=== PATIENT | male | born 1950 | race Caucasian/White ===

== ENCOUNTER 2019-11-15 10:06 | Outpatient (CLI) | payer MEDICARE ==
--- NOTE | 2019-11-15 14:42 | NM ---
NM Bone Scan STANDARD History: Mass. Secondary malignant neoplasm of bone Comparison: CT scan November 01, 2019. MRI October 31, 2019 Findings: Delayed whole body imaging performed after the intravenous administration 33 mCi technetium 99m MDP. Adequate uptake of radiotracer. The kidneys and urinary bladder are visualized. There is high-grade patient is uptake on the left SI joint is a into the anterior soft tissues. No ot her abnormal focus of radiotracer uptake is appreciated. Mild degenerative changes of the posterior elements thoracic spine. Impression: Findings of large solitary mass of the left SI joint extending into the anterior soft tis sues. Malignant transformation of osteosarcoma from Paget's disease is a possibility.
== END 2019-11-15 10:07 | disposition home or self-care (01) ==
LOC: NM 10:06
PROVIDERS: ATTEND Internal Medicine Hematology & Oncology
DX: C79.51 Secondary malignant neoplasm of bone (principal); M89.8X8 Other specified disorders of bone, other site
CPT/HCPCS: 78306; A9503

== ENCOUNTER → 2020-11-12 | Day surgery (SDC) | payer MEDICARE ==
[~2020-11-12] MED LIST: Acetaminophen 500 MG TAB PO PRN; Sodium Chloride 0.9% 20 ML ONE; diphenhydrAMINE 25 MG CAP PO PRN
[2020-11-12 16:22] VITALS: BP 157/74; TEMP 98.4
== END ==
LOC: ONC/OP 13:14
PROVIDERS: ATTEND Internal Medicine Hematology & Oncology
PROC: 30233N1 Transfusion of Nonautologous Red Blood Cells into Peripheral Vein, Percutaneous Approach (ICD-10-PCS; principal; 2020-11-12)
DX: D64.9 Anemia, unspecified (principal)
CPT/HCPCS: 36430; 86850; 86900; 86901; P9016; Q0163

== ENCOUNTER 2020-12-25 08:39 | Day surgery (SDC) | payer MEDICARE ==
[~2020-12-25 08:39] MED LIST changes: -Sodium Chloride 0.9% 20 ML ONE
[2020-12-25] MEDS ORDERED: Sodium Chloride 0.9% 20 ML ONE (09:43)
[2020-12-25 13:48] VITALS: BP 148/74; TEMP 98.5
== END 2020-12-25 13:51 | disposition home or self-care (01) ==
LOC: ONC/OP 08:39
PROVIDERS: ATTEND Nurse Practitioner Family
PROC: 30233N1 Transfusion of Nonautologous Red Blood Cells into Peripheral Vein, Percutaneous Approach (ICD-10-PCS; principal; 2020-12-25)
DX: D64.9 Anemia, unspecified (principal); D69.6 Thrombocytopenia, unspecified
CPT/HCPCS: 36430; 86850; 86900; 86901; P9016

== ENCOUNTER 2021-01-23 15:16 | Inpatient (IN) | payer MEDICARE ==
[2021-01-23] MEDS ORDERED: HYDROcodone/Acetaminophen 10/325 mg Tablet ONE ×2 (16:42→16:48)
[2021-01-23 17:01] LABS: Hemoglobin 9.4 g/dL (14.0-18.0); Mean Corpuscular HGB CONC 31.8 g/dL (32.0-36.0); Mean Corpuscular Volume 97.5 fL (78.0-98.0); RBC Distribution Width 19.4 % (11.5-14.5); Red Blood Cell (RBC) Count 3.02 mill/uL (4.70-6.10); White Blood Cell (WBC) Count 4.4 thou/uL (4.8-10.8)
[2021-01-23 17:02] LABS: #Lymphocytes 0.8 thou/uL (1.20-3.40); #Monocytes 0.4 thou/uL (0.11-0.59); #Neutrophils 3.2 thou/uL (1.40-6.50); %Basophils 0.4 % (0.0-1.0); %Eosinophils 0.9 % (0.0-10.0); %Monocytes 8.8 % (0.0-10.0); %Neutrophils 71.9 % (42.0-75.0); Mean Platelet Volume 7.9 fL (7.4-10.4); Platelet Count 112 thou/uL (130-400)
[2021-01-23 17:24] LABS: ALT (SGPT) 22 U/L (8-55); AST (SGOT) 37 U/L (5-34); Albumin 3.7 g/dL (3.4-4.8); Alkaline Phosphatase 957 U/L (40-110); Anion Gap 11 mmol/L (10-20); BUN (Urea Nitrogen) 14 mg/dL (8.4-25.7); Bilirubin, Total 0.5 mg/dL (0.2-1.2); Calc. Creatinine Clearance 0 mL/min (70-130); Calcium 8.7 mg/dL (7.8-10.44); Carbon Dioxide 27 mmol/L (23-31); Chloride 95 mmol/L (98-107); Globulin 2.8 g/dL (2.4-3.5); Glucose 138 mg/dL (83-110); Potassium 4.2 mmol/L (3.5-5.1); Protein, Total 6.5 g/dL (5.8-8.1); Sodium 129 mmol/L (136-145)
[2021-01-23 17:56] LABS: Bacteria/HPF None Seen HPF (None Seen); Bilirubin Negative (Negative); Blood, Urine Negative (Negative); Clarity Clear (Clear); Glucose, Urine (Dipstick) 30 mg/dL (Negative); Ketone, Urine Negative (Negative); Leukocyte Negative Leu/uL (Negative); Nitrite Negative (Negative); Protein, Urine (Dipstick) 30 mg/dL (Neg-Trace); RBC/HPF 0-3 HPF (0-3); Specific Gravity, Urine 1.022 (1.002-1.036); Squamous Epithelial None Seen HPF (0-3); Urobilinogen Normal mg/dL (Less than 2); WBC/HPF 0-3 HPF (0-3)
[2021-01-23] MEDS ORDERED: Magnesium Citrate 300 ML BOT ONE (19:55)
[2021-01-23 22:03] LABS: SARS-CoV-2 NAA Rapid Test Not Detected (NotDetected)
[2021-01-23] MEDS ORDERED: Ondansetron PF 4 MG/2 ML Vial IVP PRN (22:06)
[2021-01-23] MEDS ORDERED: Bisacodyl 5 MG TAB PO PRN (22:06)
[2021-01-23] MEDS ORDERED: Melatonin 3 MG TAB PO PRN (22:13)
[2021-01-23] MEDS ORDERED: Mineral Oil ENEMA PR SCH (22:30)
[2021-01-23] MEDS ORDERED: Tamsulosin HCl 0.4 MG CAP PO SCH (22:30)
[2021-01-24 01:55] VITALS: BMI 29.1
[2021-01-24] MEDS ORDERED: Ketorolac Tromethamine 30 MG/ML VIAL IVP SCH (02:45)
[2021-01-24 06:14] LABS: #Eosinphils 0.1 thou/uL (0.0-0.7); #Lymphocytes 0.8 thou/uL (1.20-3.40); #Monocytes 0.4 thou/uL (0.11-0.59); #Neutrophils 2.3 thou/uL (1.40-6.50); %Basophils 0.5 % (0.0-1.0); %Eosinophils 1.7 % (0.0-10.0); %Monocytes 9.8 % (0.0-10.0); Hemoglobin 8.9 g/dL (14.0-18.0); Mean Corpuscular HGB CONC 32.9 g/dL (32.0-36.0); Mean Corpuscular Hemoglobin 31.8 pg (27.0-31.0); Mean Corpuscular Volume 96.7 fL (78.0-98.0); Mean Platelet Volume 7.8 fL (7.4-10.4); Platelet Count 95 thou/uL (130-400); RBC Distribution Width 19.3 % (11.5-14.5); Red Blood Cell (RBC) Count 2.79 mill/uL (4.70-6.10); White Blood Cell (WBC) Count 3.6 thou/uL (4.8-10.8)
[2021-01-24 06:30] LABS: ALT (SGPT) 25 U/L (8-55); AST (SGOT) 37 U/L (5-34); Albumin 3.5 g/dL (3.4-4.8); Alkaline Phosphatase 883 U/L (40-110); Anion Gap 10 mmol/L (10-20); BUN (Urea Nitrogen) 14 mg/dL (8.4-25.7); Bilirubin, Total 0.5 mg/dL (0.2-1.2); Calc. Creatinine Clearance 170 mL/min (70-130); Calcium 8.4 mg/dL (7.8-10.44); Carbon Dioxide 25 mmol/L (23-31); Chloride 98 mmol/L (98-107); Globulin 2.7 g/dL (2.4-3.5); Glucose 118 mg/dL (83-110); Potassium 4.1 mmol/L (3.5-5.1); Protein, Total 6.2 g/dL (5.8-8.1); Sodium 129 mmol/L (136-145)
[2021-01-24] MEDS: Famotidine/PF 20 mg/2ml Vial SLOW IVP SCH ×2 (08:58→22:16)
[2021-01-24] MEDS: Senokot S 8.6-50 MG TAB PO SCH ×2 (08:59→22:19)
[2021-01-24] MEDS ORDERED: Methylnaltrexone 12 MG/0.6 ML VIAL SC SCH (10:15)
[2021-01-24] MEDS ORDERED: Morphine IR Tab 15 MG TAB PO SCH (11:00)
[2021-01-24] MEDS ORDERED: GoLYTELY 4,000 ml Bottle PO SCH (17:00)
[2021-01-24] MEDS ORDERED: Dexamethasone 4 mg/ml Vial SLOW IVP SCH (18:15)
[2021-01-24] MEDS: Gabapentin 100 MG CAP PO PRN (19:24)
[2021-01-24] MEDS ORDERED: Sodium Chloride 0.9% 1,000 ML IV SCH (20:30)
[2021-01-24] MEDS ORDERED: Albuterol Sulfate 2.5 mg/3 ml Neb NEB PRN (21:08)
[2021-01-24] MEDS ORDERED: Albuterol Sulfate 2.5 mg/3 ml Neb NEB STA (21:08)
[2021-01-24] MEDS: Tamsulosin HCl 0.4 MG CAP PO SCH (22:17)
[2021-01-24] MEDS: Morphine IR Tab 15 MG TAB PO SCH (22:18)
[2021-01-24 23:47] LABS: #Lymphocytes 0.4 thou/uL (1.20-3.40); #Monocytes 0.2 thou/uL (0.11-0.59); #Neutrophils 2.7 thou/uL (1.40-6.50); %Eosinophils 0.7 % (0.0-10.0); %Lymphocytes 11.5 % (21.0-51.0); %Monocytes 6.2 % (0.0-10.0); %Neutrophils 81.6 % (42.0-75.0); Mean Corpuscular HGB CONC 32.8 g/dL (32.0-36.0); Mean Corpuscular Volume 97.6 fL (78.0-98.0); Mean Platelet Volume 7.5 fL (7.4-10.4); Platelet Count 109 thou/uL (130-400); RBC Distribution Width 19.6 % (11.5-14.5); Red Blood Cell (RBC) Count 3.11 mill/uL (4.70-6.10); White Blood Cell (WBC) Count 3.3 thou/uL (4.8-10.8)
[2021-01-24] MEDS ORDERED: Piperacillin/Tazobactam 3.375 GM in Sodium Chloride 0.9% 100 ML IVPB SCH (23:59)
[2021-01-25] LABS: Lactic Acid 0.9 mmol/L (0.5-2.2)
[2021-01-25 00:05] LABS: ALT (SGPT) 35 U/L (8-55); AST (SGOT) 48 U/L (5-34); Albumin 3.8 g/dL (3.4-4.8); Alkaline Phosphatase 992 U/L (40-110); Anion Gap 15 mmol/L (10-20); BUN (Urea Nitrogen) 22 mg/dL (8.4-25.7); Bilirubin, Total 0.6 mg/dL (0.2-1.2); Calc. Creatinine Clearance 148 mL/min (70-130); Calcium 8.8 mg/dL (7.8-10.44); Carbon Dioxide 22 mmol/L (23-31); Chloride 94 mmol/L (98-107); Globulin 3.1 g/dL (2.4-3.5); Glucose 167 mg/dL (83-110); Potassium 4.1 mmol/L (3.5-5.1); Protein, Total 6.9 g/dL (5.8-8.1); Sodium 127 mmol/L (136-145)
[2021-01-25 00:12] VITALS: BP 137/85
[2021-01-25] MEDS: Piperacillin/Tazobactam 3.375 GM in Sodium Chloride 0.9% 100 ML IVPB SCH ×3 (04:32→20:20)
[2021-01-25] MEDS ORDERED: Morphine 2 MG/ML VIAL SLOW IVP PRN (10:01)
[2021-01-25] MEDS ORDERED: Iopamidol-370 76% 500 ML 1 ML ONE (10:20)
[2021-01-25] MEDS ORDERED: Digoxin 0.5 MG/2 ML AMP SLOW IVP SCH (10:30)
[2021-01-25] MEDS: Morphine IR Tab 15 MG TAB PO SCH (10:32)
[2021-01-25] MEDS: Senokot S 8.6-50 MG TAB PO SCH ×2 (10:32→20:57)
[2021-01-25] MEDS: Famotidine/PF 20 mg/2ml Vial SLOW IVP SCH ×2 (10:38→19:52)
[2021-01-25] MEDS ORDERED: Morphine 4 MG/ML VIAL SLOW IVP PRN ×2 (10:39→10:41)
[2021-01-25] MEDS: Amiodarone 450 MG in Dextrose 5% in Water 250 ML IVPB SCH ×2 (13:22→20:59)
[2021-01-25 14:12] LABS: Magnesium 2.5 mg/dL (1.6-2.6)
[2021-01-25 15:36] LABS: #Lymphocytes 0.6 thou/uL (1.20-3.40); #Monocytes 0.3 thou/uL (0.11-0.59); #Neutrophils 2.8 thou/uL (1.40-6.50); %Eosinophils 0.4 % (0.0-10.0); %Monocytes 8.9 % (0.0-10.0); %Neutrophils 75.7 % (42.0-75.0); Hemoglobin 9.9 g/dL (14.0-18.0); Mean Corpuscular HGB CONC 32.1 g/dL (32.0-36.0); Mean Corpuscular Hemoglobin 31.2 pg (27.0-31.0); Mean Corpuscular Volume 97.1 fL (78.0-98.0); Mean Platelet Volume 7.8 fL (7.4-10.4); Platelet Count 133 thou/uL (130-400); RBC Distribution Width 19.5 % (11.5-14.5); Red Blood Cell (RBC) Count 3.18 mill/uL (4.70-6.10); White Blood Cell (WBC) Count 3.7 thou/uL (4.8-10.8)
[2021-01-25 15:50] LABS: ALT (SGPT) 48 U/L (8-55); AST (SGOT) 54 U/L (5-34); Albumin 3.7 g/dL (3.4-4.8); Alkaline Phosphatase 916 U/L (40-110); Anion Gap 15 mmol/L (10-20); BUN (Urea Nitrogen) 25 mg/dL (8.4-25.7); Bilirubin, Total 0.7 mg/dL (0.2-1.2); Calc. Creatinine Clearance 153 mL/min (70-130); Calcium 8.8 mg/dL (7.8-10.44); Carbon Dioxide 21 mmol/L (23-31); Chloride 97 mmol/L (98-107); Glucose 144 mg/dL (83-110); Magnesium 2.6 mg/dL (1.6-2.6); Protein, Total 6.7 g/dL (5.8-8.1); Sodium 129 mmol/L (136-145)
[2021-01-25] MEDS ORDERED: Potassium Phosphate 30 MMOL in Sodium Chloride 0.9% 250 ML 250 ML IVPB SCH (16:30)
[2021-01-25] MEDS: Diltiazem 125 MG in Sodium Chloride 0.9% 100 ML IVPB SCH (19:52)
[2021-01-25] MEDS ORDERED: Methylnaltrexone 12 MG/0.6 ML VIAL SC SCH (20:00)
[2021-01-25] MEDS: Tamsulosin HCl 0.4 MG CAP PO SCH (20:57)
[2021-01-26 03:50] LABS: #Lymphocytes 0.6 thou/uL (1.20-3.40); #Monocytes 0.3 thou/uL (0.11-0.59); #Neutrophils 4.1 thou/uL (1.40-6.50); %Basophils 0.2 % (0.0-1.0); %Eosinophils 0.3 % (0.0-10.0); %Lymphocytes 11.8 % (21.0-51.0); %Monocytes 5.5 % (0.0-10.0); %Neutrophils 82.3 % (42.0-75.0); Band 35 % (5-11); Hemoglobin 10.4 g/dL (14.0-18.0); Lymphocytes 16 % (21-51); MDiff Complete? YES; Mean Corpuscular HGB CONC 32.4 g/dL (32.0-36.0); Mean Corpuscular Hemoglobin 31.7 pg (27.0-31.0); Mean Corpuscular Volume 98.1 fL (78.0-98.0); Mean Platelet Volume 7.4 fL (7.4-10.4); Monocytes 5 % (0-10); Neutrophil 44 % (42-75); Platelet Count 116 thou/uL (130-400); Platelet Morphology Comment Appears Decreased; RBC Distribution Width 19.5 % (11.5-14.5); RBC Morphology Normal; Red Blood Cell (RBC) Count 3.27 mill/uL (4.70-6.10); White Blood Cell (WBC) Count 4.9 thou/uL (4.8-10.8)
[2021-01-26 04:05] LABS: ALT (SGPT) 39 U/L (8-55); AST (SGOT) 38 U/L (5-34); Albumin 3.5 g/dL (3.4-4.8); Alkaline Phosphatase 838 U/L (40-110); Anion Gap 15 mmol/L (10-20); BUN (Urea Nitrogen) 24 mg/dL (8.4-25.7); Bilirubin, Total 0.7 mg/dL (0.2-1.2); Calc. Creatinine Clearance 158 mL/min (70-130); Calcium 8.4 mg/dL (7.8-10.44); Carbon Dioxide 21 mmol/L (23-31); Chloride 100 mmol/L (98-107); Globulin 2.9 g/dL (2.4-3.5); Glucose 131 mg/dL (83-110); Magnesium 2.4 mg/dL (1.6-2.6); Phosphorus 1.5 mg/dL (2.3-4.7); Potassium 3.9 mmol/L (3.5-5.1); Protein, Total 6.4 g/dL (5.8-8.1); Sodium 132 mmol/L (136-145)
[2021-01-26] MEDS: Piperacillin/Tazobactam 3.375 GM in Sodium Chloride 0.9% 100 ML IVPB SCH ×3 (04:54→21:10)
[2021-01-26] MEDS: Diltiazem 125 MG in Sodium Chloride 0.9% 100 ML IVPB SCH ×2 (04:58→15:38)
[2021-01-26] MEDS ORDERED: Electrolyte Replacement Protocol 1 EACH FS SCH (05:30)
[2021-01-26] MEDS ORDERED: Potassium Phosphate 22 MMOL in Sodium Chloride 0.9% 250 ML 250 ML IVPB SCH (06:00)
[2021-01-26] MEDS ORDERED: Potassium Phosphate 30 MMOL in Sodium Chloride 0.9% 250 ML 250 ML IVPB SCH (06:45)
[2021-01-26] MEDS: Famotidine/PF 20 mg/2ml Vial SLOW IVP SCH ×2 (08:36→21:12)
[2021-01-26] MEDS: Senokot S 8.6-50 MG TAB PO SCH ×2 (09:09→21:11)
[2021-01-26] MEDS ORDERED: NEOSTIGMINE IVP SCH (11:15)
[2021-01-26] MEDS ORDERED: ADMIXTURE FEE IVP SCH (11:15)
[2021-01-26] MEDS ORDERED: Atropine Sulfate 1 mg/10 ml Syringe ONE (11:34)
[2021-01-26] MEDS: Amiodarone 450 MG in Dextrose 5% in Water 250 ML IVPB SCH (11:51)
[2021-01-26] MEDS: Lactated Ringer's 1,000 ML IV SCH (16:26)
[2021-01-26] MEDS ORDERED: HYDROmorphone 0.5 MG/0.5 ML SYRINGE SLOW IVP SCH (17:30)
[2021-01-26] MEDS ORDERED: Morphine 4 MG/ML VIAL SLOW IVP PRN (17:31)
[2021-01-26] MEDS: Acetaminophen 325 MG TAB PO PRN (18:27)
[2021-01-26] MEDS: Tamsulosin HCl 0.4 MG CAP PO SCH (21:11)
[2021-01-27] MEDS: Diltiazem 125 MG in Sodium Chloride 0.9% 100 ML IVPB SCH (00:10)
[2021-01-27] MEDS: Amiodarone 450 MG in Dextrose 5% in Water 250 ML IVPB SCH ×2 (00:11→03:08)
[2021-01-27] MEDS: Gabapentin 100 MG CAP PO PRN (03:03)
[2021-01-27 03:51] LABS: #Lymphocytes 0.7 thou/uL (1.20-3.40); #Monocytes 0.3 thou/uL (0.11-0.59); #Neutrophils 4.4 thou/uL (1.40-6.50); %Eosinophils 0.2 % (0.0-10.0); %Lymphocytes 13.3 % (21.0-51.0); %Neutrophils 81.4 % (42.0-75.0); Hemoglobin 9.1 g/dL (14.0-18.0); Mean Corpuscular HGB CONC 33.6 g/dL (32.0-36.0); Mean Corpuscular Hemoglobin 32.5 pg (27.0-31.0); Mean Corpuscular Volume 96.7 fL (78.0-98.0); Platelet Count 153 thou/uL (130-400); Red Blood Cell (RBC) Count 2.81 mill/uL (4.70-6.10); White Blood Cell (WBC) Count 5.4 thou/uL (4.8-10.8)
[2021-01-27 04:20] LABS: ALT (SGPT) 69 U/L (8-55); AST (SGOT) 91 U/L (5-34); Albumin 2.9 g/dL (3.4-4.8); Alkaline Phosphatase 655 U/L (40-110); Anion Gap 13 mmol/L (10-20); BUN (Urea Nitrogen) 23 mg/dL (8.4-25.7); Bilirubin, Total 0.6 mg/dL (0.2-1.2); Calc. Creatinine Clearance 180 mL/min (70-130); Calcium 8.1 mg/dL (7.8-10.44); Carbon Dioxide 22 mmol/L (23-31); Chloride 102 mmol/L (98-107); Globulin 2.8 g/dL (2.4-3.5); Glucose 112 mg/dL (83-110); Magnesium 2.3 mg/dL (1.6-2.6); Phosphorus Less than 1.0 mg/dL (2.3-4.7); Potassium 3.6 mmol/L (3.5-5.1); Protein, Total 5.7 g/dL (5.8-8.1); Sodium 133 mmol/L (136-145)
[2021-01-27] MEDS: Piperacillin/Tazobactam 3.375 GM in Sodium Chloride 0.9% 100 ML IVPB SCH ×2 (05:16→12:25)
[2021-01-27] MEDS ORDERED: Potassium Phosphate 30 MMOL in Sodium Chloride 0.9% 250 ML 250 ML IVPB SCH ×3 (05:30→07:45)
[2021-01-27] MEDS: Senokot S 8.6-50 MG TAB PO SCH ×2 (07:58→20:46)
[2021-01-27] MEDS: Famotidine/PF 20 mg/2ml Vial SLOW IVP SCH ×2 (08:02→20:46)
[2021-01-27] MEDS ORDERED: Amiodarone 200 MG TAB PO SCH (11:30)
[2021-01-27] MEDS ORDERED: Diltiazem HCl SR 90 mg Capsule PO SCH (11:30)
[2021-01-27] MEDS: Lactated Ringer's 1,000 ML IV SCH (12:26)
[2021-01-27] MEDS: Gabapentin 300 MG CAP PO PRN (12:26)
[2021-01-27] MEDS: Ampicillin/Sulbactam 3 GM in Sodium Chloride 0.9% 100 ML IVPB SCH ×2 (18:47→23:28)
[2021-01-27] MEDS: Amiodarone 200 MG TAB PO SCH (20:46)
[2021-01-27] MEDS: Diltiazem HCl SR 90 mg Capsule PO SCH (20:46)
[2021-01-27] MEDS: Baclofen 10 MG TAB PER TUBE SCH (20:46)
[2021-01-27] MEDS: Tamsulosin HCl 0.4 MG CAP PO SCH (20:47)
[2021-01-27] MEDS ORDERED: Metoprolol Tartrate 5 MG/5 ML VIAL IVP SCH (23:00)
[2021-01-28] MEDS ORDERED: Metoprolol Tartrate 5 MG/5 ML VIAL IVP SCH (01:15)
[2021-01-28 04:11] LABS: ALT (SGPT) 139 U/L (8-55); AST (SGOT) 155 U/L (5-34); Albumin 3.4 g/dL (3.4-4.8); Alkaline Phosphatase 694 U/L (40-110); Anion Gap 17 mmol/L (10-20); BUN (Urea Nitrogen) 26 mg/dL (8.4-25.7); Bilirubin, Total 0.6 mg/dL (0.2-1.2); Calc. Creatinine Clearance 167 mL/min (70-130); Calcium 8.4 mg/dL (7.8-10.44); Carbon Dioxide 23 mmol/L (23-31); Chloride 101 mmol/L (98-107); Globulin 2.3 g/dL (2.4-3.5); Glucose 105 mg/dL (83-110); Magnesium 2.3 mg/dL (1.6-2.6); Phosphorus 1.1 mg/dL (2.3-4.7); Potassium 3.7 mmol/L (3.5-5.1); Protein, Total 5.7 g/dL (5.8-8.1); Sodium 137 mmol/L (136-145)
[2021-01-28] MEDS: Diltiazem 125 MG in Sodium Chloride 0.9% 100 ML IVPB SCH ×2 (04:11→21:50)
[2021-01-28 04:29] LABS: #Lymphocytes 0.9 thou/uL (1.20-3.40); #Monocytes 0.4 thou/uL (0.11-0.59); #Neutrophils 6.5 thou/uL (1.40-6.50); %Basophils 0.2 % (0.0-1.0); %Eosinophils 0.3 % (0.0-10.0); %Lymphocytes 13.4 % (21.0-51.0); %Monocytes 5.3 % (0.0-10.0); %Neutrophils 80.8 % (42.0-75.0); Hemoglobin 10.8 g/dL (14.0-18.0); Mean Corpuscular HGB CONC 31.4 g/dL (32.0-36.0); Mean Corpuscular Volume 98.9 fL (78.0-98.0); Mean Platelet Volume 7.5 fL (7.4-10.4); Platelet Count 177 thou/uL (130-400); RBC Distribution Width 19.7 % (11.5-14.5); Red Blood Cell (RBC) Count 3.48 mill/uL (4.70-6.10); White Blood Cell (WBC) Count 7.9 thou/uL (4.8-10.8)
[2021-01-28] MEDS ORDERED: Potassium Phosphate 22 MMOL in Sodium Chloride 0.9% 250 ML 250 ML IVPB SCH (05:00)
[2021-01-28] MEDS: Ampicillin/Sulbactam 3 GM in Sodium Chloride 0.9% 100 ML IVPB SCH ×3 (05:07→17:46)
[2021-01-28] MEDS ORDERED: Digoxin 0.5 MG/2 ML AMP SLOW IVP SCH (05:30)
[2021-01-28] MEDS: Acetaminophen 325 MG TAB PO PRN (09:23)
[2021-01-28] MEDS: Senokot S 8.6-50 MG TAB PO SCH ×2 (09:25→21:41)
[2021-01-28] MEDS: Amiodarone 200 MG TAB PO SCH ×2 (09:26→21:40)
[2021-01-28] MEDS: Baclofen 10 MG TAB PER TUBE SCH ×3 (09:26→21:40)
[2021-01-28] MEDS: Lactated Ringer's 1,000 ML IV SCH (09:26)
[2021-01-28] MEDS: Famotidine/PF 20 mg/2ml Vial SLOW IVP SCH ×2 (09:26→21:39)
[2021-01-28] MEDS: Diltiazem HCl SR 90 mg Capsule PO SCH ×2 (11:40→21:40)
[2021-01-28] MEDS: Tamsulosin HCl 0.4 MG CAP PO SCH (21:40)
[2021-01-29] MEDS: Ampicillin/Sulbactam 3 GM in Sodium Chloride 0.9% 100 ML IVPB SCH ×3 (00:56→11:38)
[2021-01-29] MEDS: Lactated Ringer's 1,000 ML IV SCH (08:34)
[2021-01-29] MEDS: Famotidine/PF 20 mg/2ml Vial SLOW IVP SCH (08:34)
[2021-01-29] MEDS: Gabapentin 300 MG CAP PO PRN (08:35)
[2021-01-29] MEDS: Acetaminophen 325 MG TAB PO PRN (08:35)
[2021-01-29] MEDS: Amiodarone 200 MG TAB PO SCH (08:35)
[2021-01-29] MEDS: Baclofen 10 MG TAB PER TUBE SCH (08:37)
[2021-01-29] MEDS: Senokot S 8.6-50 MG TAB PO SCH (08:38)
[2021-01-29] MEDS: Diltiazem HCl SR 90 mg Capsule PO SCH (08:55)
[2021-01-29] MEDS ORDERED: Polyethylene Glycol 3350 17 GM Packet PO SCH (09:00)
[2021-01-29 09:43] LABS: #Lymphocytes 0.7 thou/uL (1.20-3.40); #Monocytes 0.5 thou/uL (0.11-0.59); #Neutrophils 3.4 thou/uL (1.40-6.50); %Eosinophils 0.7 % (0.0-10.0); %Lymphocytes 15.3 % (21.0-51.0); Hemoglobin 8.9 g/dL (14.0-18.0); Mean Corpuscular HGB CONC 32.7 g/dL (32.0-36.0); Mean Corpuscular Hemoglobin 32.3 pg (27.0-31.0); Mean Corpuscular Volume 98.6 fL (78.0-98.0); Mean Platelet Volume 7.2 fL (7.4-10.4); Platelet Count 164 thou/uL (130-400); RBC Distribution Width 19.7 % (11.5-14.5); Red Blood Cell (RBC) Count 2.75 mill/uL (4.70-6.10); White Blood Cell (WBC) Count 4.6 thou/uL (4.8-10.8)
[2021-01-29 10:08] LABS: ALT (SGPT) 73 U/L (8-55); AST (SGOT) 38 U/L (5-34); Albumin 3.1 g/dL (3.4-4.8); Alkaline Phosphatase 529 U/L (40-110); Anion Gap 12 mmol/L (10-20); BUN (Urea Nitrogen) 21 mg/dL (8.4-25.7); Bilirubin, Total 0.4 mg/dL (0.2-1.2); Calc. Creatinine Clearance 173 mL/min (70-130); Calcium 7.9 mg/dL (7.8-10.44); Carbon Dioxide 26 mmol/L (23-31); Chloride 105 mmol/L (98-107); Globulin 2.3 g/dL (2.4-3.5); Glucose 114 mg/dL (83-110); Magnesium 1.9 mg/dL (1.6-2.6); Phosphorus Less than 1.0 mg/dL (2.3-4.7); Potassium 3.1 mmol/L (3.5-5.1); Protein, Total 5.4 g/dL (5.8-8.1); Sodium 140 mmol/L (136-145)
[2021-01-29 10:59] VITALS: TEMP 97.6
[2021-01-29] MEDS ORDERED: Potassium Chloride 20 MEQ TAB PO SCH ×2 (12:00→13:15)
[2021-01-29] MEDS ORDERED: Magnesium 2 GM/50 ML 2 GM in Premix Bag 1 BAG IVPB SCH ×2 (12:00→13:15)
[2021-01-29] MEDS ORDERED: Potassium Chloride 40 MEQ in Sodium Chloride 0.9% 250 ML 250 ML IVPB SCH (13:30)
== END 2021-01-29 17:08 | disposition hospice, home (50) | DRG 542 ==
LOC: ERS 15:16 → T4-B 20:57 → IMCU/EMU 01-24 21:50
PROVIDERS: ADMIT Student in an Organized Health Care Education/Training Program; ATTEND Family Medicine
PROC: 0D9670Z Drainage of Stomach with Drainage Device, Via Natural or Artificial Opening (ICD-10-PCS; principal; 2021-01-25)
DX: M84.551A Pathological fracture in neoplastic disease, right femur, initial encounter for fracture (principal); J96.01 Acute respiratory failure with hypoxia; J69.0 Pneumonitis due to inhalation of food and vomit; G93.41 Metabolic encephalopathy; I48.11 Longstanding persistent atrial fibrillation; J90 Pleural effusion, not elsewhere classified; K56.7 Ileus, unspecified; C79.51 Secondary malignant neoplasm of bone; D61.818 Other pancytopenia; E87.1 Hypo-osmolality and hyponatremia; G83.4 Cauda equina syndrome; M48.54XA Collapsed vertebra, not elsewhere classified, thoracic region, initial encounter for fracture; Z66 Do not resuscitate; Z20.822 Contact with and (suspected) exposure to COVID-19; I10 Essential (primary) hypertension; W18.30XA Fall on same level, unspecified, initial encounter; R33.9 Retention of urine, unspecified; K59.01 Slow transit constipation; R29.898 Other symptoms and signs involving the musculoskeletal system; G89.29 Other chronic pain; N40.1 Benign prostatic hyperplasia with lower urinary tract symptoms; R33.8 Other retention of urine; M47.896 Other spondylosis, lumbar region; M48.061 Spinal stenosis, lumbar region without neurogenic claudication; R39.14 Feeling of incomplete bladder emptying; T40.605A Adverse effect of unspecified narcotics, initial encounter; E78.5 Hyperlipidemia, unspecified; E78.00 Pure hypercholesterolemia, unspecified; Z87.891 Personal history of nicotine dependence; Z85.46 Personal history of malignant neoplasm of prostate; Z79.82 Long term (current) use of aspirin; Z79.52 Long term (current) use of systemic steroids; Z79.899 Other long term (current) drug therapy; Z92.21 Personal history of antineoplastic chemotherapy
CPT/HCPCS: 36415; 36416; 51703; 71045; 72170; 74018; 74177; 80053; 81003; 81015; 83605; 83735; 84100; 85025; 87040; 93005; 93010; 93306; J0282; J0295; J1100; J1160; J1885; J2212; J2543; J2710; J3475; J3490; J7050; J7070; J7120; Q9967; S0028; U0002